=== PATIENT | female | born 1945 | race Caucasian/White ===

== ENCOUNTER 2018-04-24 21:10 | Inpatient (IN) | payer BC, OTHER ==
[~2018-04-24] VITALS: Ht 160 cm; Wt 43.1 kg
[~2018-04-24 21:10] MED LIST: BENA40TA2 PO; CHOL500037 PO; CYAI1000 IM; DULO60CA41 PO; FOLI-43 PO; HYDR200T80 PO; LEVO125T PO; LYR50 PO; MAGN400T10 PO; METH2.5T PO; MULT PO; PRED5TAB PO; TRAZ-123 PO
[2018-04-24 21:20] VITALS: BP_SYST 97
[2018-04-24] MEDS ORDERED: MAR2.5 PO (21:57)
[2018-04-24] MEDS ORDERED: ASA81 PO (21:57)
[2018-04-24] MEDS ORDERED: LISI-209 PO (21:57)
[2018-04-24] MEDS ORDERED: CALC0.258 PO (21:57)
[2018-04-24] MEDS ORDERED: PREG75CA PO (21:57)
[2018-04-24] MEDS ORDERED: FLOR.1 PO (21:57)
[2018-04-24] MEDS ORDERED: THIA100T13 PO (21:57)
[2018-04-24] MEDS ORDERED: MIRT15TA7 PO (21:57)
[2018-04-25] MEDS ORDERED: CLINDAMYCIN PHOSPHATE 300 MG/2 ML VIAL IM ONE (00:15)
[2018-04-25 01:09] LABS: BASOPHILS % (AUTO) 0.1 % (0.0-2.0); EOSINOPHILS % (AUTO) 0.1 % (0.0-4.0); HEMATOCRIT 32.8 % (36-48); HEMOGLOBIN 11.1 g/dL (12.0-16.0); LYMPHOCYTES # (AUTO) 0.8 K/uL (1.0-5.5); LYMPHOCYTES % (AUTO) 5.9 % (20.5-51.5); MEAN CORPUSCULAR HEMOGLOBIN 32 pg (27-31); MEAN CORPUSCULAR HGB CONC 34 % (32-36); MEAN CORPUSCULAR VOLUME 93 fL (79.0-98.0); MONOCYTES # (AUTO) 1.2 K/uL (0.0-1.0); MONOCYTES % (AUTO) 8.8 % (1.7-9.3); NEUTROPHILS # (AUTO) 11.4 K/uL (1.8-7.7); NEUTROPHILS % (AUTO) 85.1 % (40.0-70.0); PLATELET COUNT (AUTO) 227 K/uL (130-430); RED BLOOD CELL COUNT(AUTO) 3.52 MIL/uL (4.2-6.2); RED CELL DISTRIBUTION WIDTH 14.5 % (9.0-15.0); WHITE BLOOD COUNT (AUTO) 13.4 K/uL (4.8-10.8)
[2018-04-25 01:16] LABS: ANION GAP 13 (5-15); CALCIUM 8.8 mg/dL (8.4-11.0); CHLORIDE 105 mmol/L (98-107); CREATININE 2.27 mg/dL (0.55-1.30); GLUCOSE 105 mg/dL (70-99); POTASSIUM 3.4 mmol/L (3.5-5.1); SODIUM SERUM 136 mmol/L (136-145); UREA NITROGEN, BLOOD 17 mg/dL (8-21)
[2018-04-25 01:22] LABS: ALANINE AMINOTRANSFERASE 13 U/L (12-78); ALBUMIN 2.7 g/dL (3.4-4.8); ASPARTATE AMINOTRANSFERASE 9 U/L (10-37); TOTAL BILIRUBIN 0.7 mg/dL (0.0-1.0)
[2018-04-25] MEDS ORDERED: NACL 0.9% 1,000 ML IV ONE (02:30)
[2018-04-25] MEDS ORDERED: VANCOMYCIN HCL 1,000 MG in NS 250 ML IV ONE (02:45)
[2018-04-25 03:09] VITALS: BP_SYST 102
[2018-04-25] MEDS ORDERED: metroNIDAZOLE 500 mg/NS 100 ML IV ONE (04:22)
[2018-04-25] MEDS ORDERED: VANCOMYCIN HCL 1000 MG/VIAL IV ONE (04:23)
[2018-04-25] MEDS: metroNIDAZOLE 500 mg/NS 100 ML IV SCH ×4 (06:00→23:21)
[2018-04-25] MEDS ORDERED: DIATR MEGLU/DIATRIZ SOD 30 ML SOLUTION PO ONE (10:23)
[2018-04-25 12:00] VITALS: BP_SYST 97
[2018-04-25 16:51] VITALS: BP_SYST 100
[2018-04-25] MEDS ORDERED: FLUDROCORTISONE ACETATE 0.1 MG TABLET( FLORINEF) PO SCH (19:15)
[2018-04-25 20:00] VITALS: BP_SYST 103
[2018-04-25] MEDS ORDERED: MIRTAZAPINE 15 MG TABLET PO SCH (21:00)
[2018-04-26 00:54] VITALS: BP_SYST 110
[2018-04-26] MEDS: metroNIDAZOLE 500 mg/NS 100 ML IV SCH ×4 (05:58→23:43)
[2018-04-26] MEDS: LEVOTHYROXINE SODIUM 0.125 MG TABLET PO SCH (05:58)
[2018-04-26] MEDS: MULTIVITAMINS TAB 1 TABLET PO SCH (08:38)
[2018-04-26] MEDS: ASPIRIN 81 MG TAB.CHEW PO SCH (08:38)
[2018-04-26] MEDS: MAGNESIUM OXIDE 400 MG TABLET PO SCH (08:38)
[2018-04-26] MEDS: PREDNISONE 5 MG TABLET PO SCH (08:39)
[2018-04-26] MEDS: FOLIC ACID 1 MG TABLET PO SCH (08:39)
[2018-04-26] MEDS: DULoxetine HCL 30 MG CAPSULE.DR (CYMBALTA) PO SCH (08:39)
[2018-04-26] MEDS: DRONABINOL 2.5 MG CAPSULE PO SCH (08:39)
[2018-04-26] MEDS: THIAMINE HCL 100 MG TABLET PO SCH (08:39)
[2018-04-26 08:41] VITALS: BP_SYST 108
[2018-04-26] MEDS ORDERED: HYDROXYCHLOROQUINE SULFATE 200 MG TABLET PO SCH (09:00)
[2018-04-26] MEDS ORDERED: BENAZEPRIL HCL 20 MG TABLET (LOTENSIN) PO SCH (09:00)
[2018-04-26 12:41] VITALS: BP_SYST 124
[2018-04-26 16:45] VITALS: BP_SYST 119
[2018-04-26 19:16] VITALS: BP_SYST 108
[2018-04-27 01:12] VITALS: BP_SYST 103
[2018-04-27] MEDS: metroNIDAZOLE 500 mg/NS 100 ML IV SCH ×2 (05:33→12:00)
[2018-04-27] MEDS: LEVOTHYROXINE SODIUM 0.125 MG TABLET PO SCH (06:50)
[2018-04-27 08:00] VITALS: BP_SYST 117
[2018-04-27] MEDS ORDERED: CALCITRIOL 0.25 MCG CAPSULE PO SCH (09:00)
[2018-04-27] MEDS ORDERED: LISINOPRIL 5 MG TABLET PO SCH (09:00)
[2018-04-27] MEDS: MAGNESIUM OXIDE 400 MG TABLET PO SCH (09:11)
[2018-04-27] MEDS: DRONABINOL 2.5 MG CAPSULE PO SCH (09:12)
[2018-04-27] MEDS: PREDNISONE 5 MG TABLET PO SCH (09:12)
[2018-04-27] MEDS: MULTIVITAMINS TAB 1 TABLET PO SCH (09:12)
[2018-04-27] MEDS: THIAMINE HCL 100 MG TABLET PO SCH (09:12)
[2018-04-27] MEDS: ASPIRIN 81 MG TAB.CHEW PO SCH (09:12)
[2018-04-27] MEDS: FOLIC ACID 1 MG TABLET PO SCH (09:12)
[2018-04-27] MEDS: DULoxetine HCL 30 MG CAPSULE.DR (CYMBALTA) PO SCH (09:12)
[2018-04-27] MEDS: ACETAMINOPHEN 325 MG TABLET PO PRN ×2 (10:44→14:41)
[2018-04-27 12:47] VITALS: BP_SYST 107
[2018-04-27] MEDS ORDERED: ONDANSETRON HCL 4 MG/2 ML VIAL IVP ONE (14:00)
[2018-04-27] MEDS ORDERED: ONDANSETRON HCL 4 MG/2 ML VIAL ONE (14:06)
[2018-04-27 14:11] VITALS: BP_SYST 107
[2018-04-30] MEDS ORDERED: CYANOCOBALAMIN 1000 MCG/ML VIAL IM SCH (17:00)
== END 2018-04-27 14:35 | disposition home health service (06) | DRG 698 ==
LOC: SED 21:10 → SMU 04-25 01:58
PROVIDERS: ADMIT Family Medicine; ATTEND Family Medicine
DX: N36.0 Urethral fistula (principal); E43 Unspecified severe protein-calorie malnutrition; L02.215 Cutaneous abscess of perineum; Z68.1 Body mass index [BMI] 19.9 or less, adult; R65.10 Systemic inflammatory response syndrome (SIRS) of non-infectious origin without acute organ dysfunction; E03.9 Hypothyroidism, unspecified; N18.9 Chronic kidney disease, unspecified; M79.7 Fibromyalgia; M06.9 Rheumatoid arthritis, unspecified; Z85.43 Personal history of malignant neoplasm of ovary; Z93.3 Colostomy status; Z85.038 Personal history of other malignant neoplasm of large intestine; Z88.1 Allergy status to other antibiotic agents; Z79.899 Other long term (current) drug therapy; Z79.82 Long term (current) use of aspirin; Z79.52 Long term (current) use of systemic steroids; Z92.21 Personal history of antineoplastic chemotherapy; Z92.3 Personal history of irradiation
CPT/HCPCS: 36415; 80053; 83605; 85025; 87040-TC; 87070-TC; 87186-TC; 96360; 96372; 99285; J1956; J2405; J3370; J3490; J7042; J7050; J7512; Q0167; Q9964